=== PATIENT | male | born 1960 | race African-American/Black ===

== ENCOUNTER 2018-10-04 10:58 | Inpatient (IN) | payer MEDICAID, OTHER ==
[~2018-10-04] VITALS: Ht 182.9 cm; Wt 199.1 kg
[~2018-10-04 10:58] MED LIST: ASPI-1159 PO; ATOR20TA65 PO; FURO-151 PO; Lisinopril PO; SEROQUEL
[2018-10-04] MEDS ORDERED: NITROGLYCERIN OINT 1GM/INCH UDPKT TD ONE (11:15)
[2018-10-04] MEDS ORDERED: FUROSEMIDE 40MG/4ML VIAL IV ONE (11:15)
[2018-10-04] MEDS ORDERED: ASPIRIN 81MG TABLET PO ONE (11:15)
[2018-10-04 12:10] LABS: INR 1.1; PARTIAL THROMBOPLASTIN TIME 24.7 sec (23.4-31.0); PROTHROMBIN TIME 10.9 sec (9.1-11.1)
[2018-10-04 12:16] LABS: BG BASE EXCESS 6.8 mmol/L (-2.0-2.0); BG BILEVEL POS AIRWAY PRESSURE ST=15/5; BG CARBOXYHEMOGLOBIN 2.8 % (0.5-1.5); BG DEOXYHEMOGLOBIN 1.3 % (0.0-5.0); BG FRACTION INSPIRED OXYGEN 50; BG HCO3 ACT 34.1 mmol/L (22.0-26.0); BG METHEMOGLOBIN 0.1 % (0.0-1.5); BG OXYGEN SATURATION 98.7 % (92.0-98.5); BG OXYHEMOGLOBIN 95.8 % (94.0-97.0); BG PCO2 62.1 mmHg (35.0-45.0); BG PH 7.358 (7.350-7.450); BG PO2 140.7 mmHg (75.0-100.0); BG PRESSURE SUPPORT 10; BG SAMPLE SITE LEFT RADIAL; BG TOTAL HEMOGLOBIN 12.8 g/dL (12.0-18.0); BG VENT MODE MASK - BIPAP; BG VENT RATE 22 set
[2018-10-04 12:33] LABS: CHLORIDE 100 mEq/L (98-107)
[2018-10-04 12:50] LABS: HEMATOCRIT. 38.2 % (42.0-52.0); HEMOGLOBIN. 12.3 g/dL (14.0-18.0); MEAN CORPUSCULAR HEMOGLOBIN 28.8 pg (28.0-32.0); MEAN CORPUSCULAR VOLUME 89.5 fL (80.0-94.0); MEAN PLATELET VOLUME 8.7 fl (7.4-10.4); PLATELET 165 x1000/uL (130-400); RED BLOOD CELL COUNT 4.27 mill/uL (4.7-6.1); RED CELL DISTRIBUTION WIDTH 14.4 % (11.6-14.6)
[2018-10-04 13:09] LABS: PLATELET ESTIMATE NORMAL
[2018-10-04] MEDS ORDERED: ACETAMINOPHEN 325MG TABLET PO PRN (14:30)
[2018-10-04] MEDS ORDERED: ONDANSETRON HCL 4MG/2ML INJ IV PRN (14:30)
[2018-10-04] MEDS ORDERED: CLONIDINE 0.1MG TABLET PO PRN (14:30)
[2018-10-04 15:15] LABS: CLARITY URINE CLEAR (CLEAR); COLOR URINE YELLOW (YELLOW); KETONES URINE NEGATIVE (NEGATIVE); LEUKOCYTE ESTERASE URINE NEGATIVE (NEGATIVE); NITRITE URINE NEGATIVE (NEGATIVE); OCCULT BLOOD URINE NEGATIVE (NEGATIVE); PROTEIN URINE NEGATIVE (NEGATIVE); SPECIFIC GRAVITY URINE 1.003 (1.005-1.030); UROBILINOGEN URINE 0.2 E.U./dL (0.2-1.0)
[2018-10-04 15:31] LABS: *AMPHETAMINES SCREEN URINE NEGATIVE (NEGATIVE); *BARBITURATES SCREEN URINE NEGATIVE (NEGATIVE); *BENZODIAZEPINES SCREEN URINE NEGATIVE (NEGATIVE); *COCAINE SCREEN URINE PRESUMTIVE POSITIVE (NEGATIVE); METHADONE URINE SCREEN NEGATIVE (NEGATIVE); OPIATES URINE SCREEN NEGATIVE (NEGATIVE)
[2018-10-04 15:32] LABS: CANNABINOID URINE SCREEN NEGATIVE (NEGATIVE); PHENCYCLIDINE URINE SCREEN NEGATIVE (NEGATIVE)
[2018-10-04 16:20] VITALS: BP 125/89
[2018-10-04 16:30] VITALS: BP 128/72
[2018-10-04] MEDS ORDERED: NIFEDIPINE XL 60MG TAB PO SCH (17:00)
[2018-10-04 18:00] VITALS: BP 118/96
[2018-10-04 20:00] VITALS: BP 144/48
[2018-10-04] MEDS: METOPROLOL TARTRATE 50MG TABLET PO SCH (21:38)
[2018-10-04] MEDS: NIFEDIPINE XL 60MG TAB PO SCH (21:39)
[2018-10-04] MEDS: ATORVASTATIN CALCIUM 20MG TABLET PO SCH (21:39)
[2018-10-04 22:00] VITALS: BP 128/51
[2018-10-04] MEDS ORDERED: ZOLPIDEM TARTRATE 5MG TABLET PO PRN ×2 (23:00)
[2018-10-05] VITALS (12 sets, daily range): BP systolic 101–159; BP diastolic 59–102
[2018-10-05] MEDS: BUDESONIDE 0.5MG/2ML NEB HHN SCH ×3 (01:08→20:01)
[2018-10-05] MEDS: IPRATROPIUM/ALBUTEROL 0.5-3(2.5)MG/3ML NEB HHN PRN ×2 (01:08→13:11)
[2018-10-05 06:39] LABS: BASOPHILS % 0.3 % (0.0-2.0); EOSINOPHILS % 2.2 % (0.0-5.0); HEMATOCRIT. 34.6 % (42.0-52.0); HEMOGLOBIN. 11.5 g/dL (14.0-18.0); LYMPHOCYTES % 10.4 % (20.0-50.0); MEAN CORPUSCULAR HEMOGLOBIN 29.3 pg (28.0-32.0); MEAN CORPUSCULAR VOLUME 87.7 fL (80.0-94.0); MEAN PLATELET VOLUME 9.1 fl (7.4-10.4); MONOCYTES % 7.5 % (2.0-8.0); NEUTROPHILS % 79.6 % (40.0-76.0); PLATELET 161 x1000/uL (130-400); RED BLOOD CELL COUNT 3.94 mill/uL (4.7-6.1)
[2018-10-05] MEDS ORDERED: FUROSEMIDE 40MG/4ML VIAL IVP SCH (09:00)
[2018-10-05] MEDS: ASPIRIN 81MG TABLET PO SCH (09:12)
[2018-10-05] MEDS: METOPROLOL TARTRATE 50MG TABLET PO SCH ×2 (09:12→21:06)
[2018-10-05] MEDS: NIFEDIPINE XL 60MG TAB PO SCH ×2 (09:12→21:06)
[2018-10-05] MEDS: IPRATROPIUM/ALBUTEROL 0.5-3(2.5)MG/3ML NEB HHN SCH (20:01)
[2018-10-05] MEDS: FUROSEMIDE 40MG/4ML VIAL IVP SCH (21:06)
[2018-10-05] MEDS: ATORVASTATIN CALCIUM 20MG TABLET PO SCH (21:06)
[2018-10-06] VITALS (12 sets, daily range): BP systolic 105–162; BP diastolic 27–99
[2018-10-06] MEDS: IPRATROPIUM/ALBUTEROL 0.5-3(2.5)MG/3ML NEB HHN SCH ×4 (02:00→19:59)
[2018-10-06 07:00] LABS: BASOPHILS % 0.5 % (0.0-2.0); EOSINOPHILS % 2.4 % (0.0-5.0); HEMATOCRIT. 35.7 % (42.0-52.0); HEMOGLOBIN. 11.7 g/dL (14.0-18.0); LYMPHOCYTES % 9.7 % (20.0-50.0); MEAN CORPUSCULAR HEMOGLOBIN 29.1 pg (28.0-32.0); MEAN CORPUSCULAR VOLUME 88.5 fL (80.0-94.0); MEAN PLATELET VOLUME 9.1 fl (7.4-10.4); NEUTROPHILS % 80.4 % (40.0-76.0); PLATELET 178 x1000/uL (130-400); RED BLOOD CELL COUNT 4.03 mill/uL (4.7-6.1); RED CELL DISTRIBUTION WIDTH 14.7 % (11.6-14.6)
[2018-10-06] MEDS: BUDESONIDE 0.5MG/2ML NEB HHN SCH ×2 (08:47→19:59)
[2018-10-06] MEDS: NIFEDIPINE XL 60MG TAB PO SCH ×2 (09:35→21:37)
[2018-10-06] MEDS: FUROSEMIDE 40MG/4ML VIAL IVP SCH ×2 (09:36→21:37)
[2018-10-06] MEDS: METOPROLOL TARTRATE 50MG TABLET PO SCH ×2 (09:36→21:38)
[2018-10-06] MEDS: ASPIRIN 81MG TABLET PO SCH (09:36)
[2018-10-06] MEDS: ATORVASTATIN CALCIUM 20MG TABLET PO SCH (21:37)
[2018-10-07] VITALS (12 sets, daily range): BP systolic 100–154; BP diastolic 53–103
[2018-10-07] MEDS: IPRATROPIUM/ALBUTEROL 0.5-3(2.5)MG/3ML NEB HHN SCH ×3 (02:40→13:16)
[2018-10-07 06:35] LABS: BASOPHILS % 0.3 % (0.0-2.0); EOSINOPHILS % 2.7 % (0.0-5.0); HEMATOCRIT. 37.8 % (42.0-52.0); HEMOGLOBIN. 12.3 g/dL (14.0-18.0); LYMPHOCYTES % 12.5 % (20.0-50.0); MEAN CORPUSCULAR HEMOGLOBIN 28.9 pg (28.0-32.0); MEAN CORPUSCULAR VOLUME 88.8 fL (80.0-94.0); MEAN PLATELET VOLUME 8.7 fl (7.4-10.4); MONOCYTES % 8.4 % (2.0-8.0); NEUTROPHILS % 76.1 % (40.0-76.0); PLATELET 184 x1000/uL (130-400); RED BLOOD CELL COUNT 4.25 mill/uL (4.7-6.1); RED CELL DISTRIBUTION WIDTH 14.4 % (11.6-14.6)
[2018-10-07] MEDS: BUDESONIDE 0.5MG/2ML NEB HHN SCH (07:38)
[2018-10-07] MEDS: FUROSEMIDE 40MG/4ML VIAL IVP SCH (08:38)
[2018-10-07] MEDS: METOPROLOL TARTRATE 50MG TABLET PO SCH (08:43)
[2018-10-07] MEDS: ASPIRIN 81MG TABLET PO SCH (08:44)
[2018-10-07] MEDS: NIFEDIPINE XL 60MG TAB PO SCH (08:44)
== END 2018-10-07 19:55 | disposition home or self-care (01) | DRG 133 ==
LOC: ER 10:58 → 5EST 13:15 → EDBEDREQ 13:17 → ENRESERV 13:37
PROVIDERS: ADMIT Internal Medicine; ATTEND Internal Medicine
PROC: 5A09457 Assistance with Respiratory Ventilation, 24-96 Consecutive Hours, Continuous Positive Airway Pressure (ICD-10-PCS; principal; 2018-10-04)
DX: J96.02 Acute respiratory failure with hypercapnia (principal); I50.33 Acute on chronic diastolic (congestive) heart failure; N17.9 Acute kidney failure, unspecified; E87.2 Acidosis; I13.0 Hypertensive heart and chronic kidney disease with heart failure and stage 1 through stage 4 chronic kidney disease, or unspecified chronic kidney disease; B19.20 Unspecified viral hepatitis C without hepatic coma; E66.01 Morbid (severe) obesity due to excess calories; F32.9 Major depressive disorder, single episode, unspecified; F43.10 Post-traumatic stress disorder, unspecified; M19.90 Unspecified osteoarthritis, unspecified site; G47.33 Obstructive sleep apnea (adult) (pediatric); N18.9 Chronic kidney disease, unspecified; F14.90 Cocaine use, unspecified, uncomplicated; D64.9 Anemia, unspecified; Z79.82 Long term (current) use of aspirin; Z79.899 Other long term (current) drug therapy; Z79.1 Long term (current) use of non-steroidal anti-inflammatories (NSAID); Z79.2 Long term (current) use of antibiotics; Z71.6 Tobacco abuse counseling; Z68.43 Body mass index [BMI] 50.0-59.9, adult
CPT/HCPCS: 36415; 36600; 71045; 80048; 80305; 82375; 82805; 83735; 83880; 84484; 93005; 93306; 93970; 94640; 94660; 97162; 99291; J1940; J7620; J7626

== ENCOUNTER 2020-12-17 11:45 | Inpatient (IN) | payer OTHER, MEDICAID ==
[~2020-12-17] VITALS: Ht 182.9 cm; Wt 212.5 kg
[~2020-12-17 11:45] MED LIST changes: -ASPI-1159 PO; +ASPI-1497 PO; +LIDOCAINE HCL/PF 1% 2ML VIAL ONE; -Lisinopril PO
[2020-12-17] MEDS ORDERED: lisinopril (11:49)
[2020-12-17] MEDS ORDERED: ONDANSETRON HCL 4MG/2ML INJ IV STA (12:26)
[2020-12-17] MEDS ORDERED: MORPHINE SULFATE 4 MG/ML CPJ (NOT FOR IM USE) IV STA (12:26)
[2020-12-17] MEDS ORDERED: FUROSEMIDE 40MG/4ML VIAL IV ONE (12:30)
[2020-12-17] MEDS ORDERED: NITROGLYCERIN OINT 1GM/INCH UDPKT TD ONE (12:30)
[2020-12-17 13:44] LABS: BASOPHILS % 0.4 % (0.0-2.0); EOSINOPHILS % 1.3 % (0.0-5.0); HEMATOCRIT. 37.9 % (42.0-52.0); HEMOGLOBIN. 11.8 g/dL (14.0-18.0); LYMPHOCYTES % 9.9 % (20.0-50.0); MEAN CORPUSCULAR HEMOGLOBIN 26.7 pg (28.0-32.0); MEAN PLATELET VOLUME 9.1 fl (7.4-10.4); MONOCYTES % 11.5 % (2.0-8.0); NEUTROPHILS % 76.9 % (40.0-76.0); PLATELET 161 x1000/uL (130-400); RED BLOOD CELL COUNT 4.41 mill/uL (4.7-6.1); RED CELL DISTRIBUTION WIDTH 16.8 % (11.6-14.6)
[2020-12-17 13:51] LABS: CHLORIDE 107 mEq/L (98-107)
[2020-12-17 13:54] LABS: INR 1.1; PARTIAL THROMBOPLASTIN TIME 26.2 sec (23.4-31.0); PROTHROMBIN TIME 11.9 sec (9.6-11.0)
[2020-12-17 13:55] LABS: ETHANOL BLOOD < 10 mg/dL
[2020-12-17 14:09] LABS: BG BASE EXCESS 3.9 mmol/L (-2.0-2.0); BG CARBOXYHEMOGLOBIN 2.3 % (0.5-1.5); BG DEOXYHEMOGLOBIN 0.4 % (0.0-5.0); BG FRACTION INSPIRED OXYGEN 60; BG HCO3 ACT 33.4 mmol/L (22.0-26.0); BG METHEMOGLOBIN 0.3 % (0.0-1.5); BG OXYGEN SATURATION 99.6 % (92.0-98.5); BG PCO2 76.3 mmHg (35.0-45.0); BG PH 7.259 (7.350-7.450); BG PO2 275.8 mmHg (75.0-100.0); BG SAMPLE SITE LEFT RADIAL; BG TOTAL HEMOGLOBIN 13.3 g/dL (12.0-18.0); BG VENT MODE MASK - BIPAP
[2020-12-17] MEDS ORDERED: ASPIRIN 325MG EC TABLET PO ONE (15:15)
[2020-12-17] MEDS ORDERED: HYDRALAZINE 20MG/ML VIAL IV PRN (15:30)
[2020-12-17] MEDS ORDERED: CLONIDINE 0.1MG TABLET PO PRN (15:30)
[2020-12-17] MEDS ORDERED: GUAIFENESIN 200MG/10ML SUGAR FREE UDC PO PRN (15:30)
[2020-12-17] MEDS ORDERED: MAGNESIUM/ALUMINUM HYDROXIDE/SIMETHICONE 30ML UDC PO PRN (15:30)
[2020-12-17] MEDS ORDERED: ONDANSETRON HCL 4MG/2ML INJ IV PRN (15:30)
[2020-12-17] MEDS ORDERED: DOCUSATE SODIUM 100MG CAPSULE PO PRN (15:30)
[2020-12-17] MEDS ORDERED: LORAZEPAM 2MG/ML CPJ IV PRN (15:30)
[2020-12-17] MEDS ORDERED: DIPHENHYDRAMINE 50MG/ML VIAL IV PRN (15:30)
[2020-12-17] MEDS ORDERED: ACETAMINOPHEN 325MG TABLET PO PRN (15:30)
[2020-12-17] MEDS ORDERED: IPRATROPIUM/ALBUTEROL 0.5-3(2.5)MG/3ML NEB HHN PRN (15:30)
[2020-12-17] MEDS ORDERED: ENOXAPARIN 40MG/0.4ML SYR SUBCUT SCH (16:30)
[2020-12-17] MEDS ORDERED: SACUBITRIL/VALSARTAN 24/26 TAB PO SCH (17:00)
[2020-12-17] MEDS: MORPHINE SULFATE 2 MG/ML CPJ (NOT FOR IM USE) IV PRN (21:45)
[2020-12-17] MEDS: SODIUM CHLORIDE 0.9% INJ 3ML FLUSH IVF SCH (22:00)
[2020-12-18] VITALS (7 sets, daily range): BP systolic 119–160; BP diastolic 53–123
[2020-12-18] MEDS: SODIUM CHLORIDE 0.9% INJ 3ML FLUSH IVF SCH ×3 (06:10→20:58)
[2020-12-18 06:51] LABS: BASOPHILS % 0.8 % (0.0-2.0); EOSINOPHILS % 0.9 % (0.0-5.0); HEMATOCRIT. 37.6 % (42.0-52.0); HEMOGLOBIN. 11.6 g/dL (14.0-18.0); LYMPHOCYTES % 8.9 % (20.0-50.0); MEAN CORPUSCULAR HEMOGLOBIN 26.7 pg (28.0-32.0); MEAN CORPUSCULAR VOLUME 86.4 fL (80.0-94.0); MEAN PLATELET VOLUME 9.1 fl (7.4-10.4); MONOCYTES % 11.7 % (2.0-8.0); NEUTROPHILS % 77.7 % (40.0-76.0); PLATELET 179 x1000/uL (130-400); RED BLOOD CELL COUNT 4.35 mill/uL (4.7-6.1); RED CELL DISTRIBUTION WIDTH 17.3 % (11.6-14.6)
[2020-12-18 06:55] LABS: CHLORIDE 107 mEq/L (98-107)
[2020-12-18 07:00] LABS: LDL CHOLESTEROL 39 mg/dL (5-100)
[2020-12-18 07:02] LABS: CREATINE KINASE 223 IU/L (39-308); HDL CHOLESTEROL 45 mg/dL (40-59)
[2020-12-18 07:05] LABS: CREATINE KINASE MB FRACTION 1.7 ng/mL (0.5-3.6)
[2020-12-18 07:07] LABS: T4 FREE 1.05 ng/dL (0.76-1.46); TOTAL IRON BINDING CAPACITY 349 ug/dL (250-450)
[2020-12-18] MEDS: ASPIRIN 81MG TABLET PO SCH (08:38)
[2020-12-18] MEDS: FUROSEMIDE 40MG/4ML VIAL IVP SCH ×2 (08:38→17:21)
[2020-12-18] MEDS: SACUBITRIL/VALSARTAN 24/26 TAB PO SCH ×2 (09:00→17:00)
[2020-12-18] MEDS: AMLODIPINE 10MG TABLET PO SCH (17:22)
[2020-12-18] MEDS: ENOXAPARIN 40MG/0.4ML SYR SUBCUT SCH (20:58)
[2020-12-19] VITALS: BP 134/70
[2020-12-19 03:15] VITALS: BP 110/61
[2020-12-19] MEDS: SODIUM CHLORIDE 0.9% INJ 3ML FLUSH IVF SCH ×3 (06:09→20:51)
[2020-12-19 08:00] VITALS: BP 158/60
[2020-12-19] MEDS: SACUBITRIL/VALSARTAN 24/26 TAB PO SCH ×2 (09:00→17:00)
[2020-12-19] MEDS: AMLODIPINE 10MG TABLET PO SCH (10:13)
[2020-12-19] MEDS: ASPIRIN 81MG TABLET PO SCH (10:13)
[2020-12-19] MEDS: ENOXAPARIN 40MG/0.4ML SYR SUBCUT SCH ×2 (10:14→20:51)
[2020-12-19] MEDS: FUROSEMIDE 40MG/4ML VIAL IVP SCH ×2 (11:02→18:21)
[2020-12-19] MEDS: MORPHINE SULFATE 2 MG/ML CPJ (NOT FOR IM USE) IV PRN (11:03)
[2020-12-19 12:00] VITALS: BP 120/45
[2020-12-19 14:24] LABS: OPIATES URINE SCREEN NEGATIVE (NEGATIVE); PHENCYCLIDINE URINE SCREEN NEGATIVE (NEGATIVE)
[2020-12-19 14:25] LABS: CANNABINOID URINE SCREEN NEGATIVE (NEGATIVE)
[2020-12-19 14:26] LABS: *AMPHETAMINES SCREEN URINE NEGATIVE (NEGATIVE)
[2020-12-19 14:28] LABS: *BARBITURATES SCREEN URINE NEGATIVE (NEGATIVE)
[2020-12-19 14:32] LABS: *COCAINE SCREEN URINE PRESUMTIVE POSITIVE (NEGATIVE)
[2020-12-19 14:33] LABS: *BENZODIAZEPINES SCREEN URINE NEGATIVE (NEGATIVE)
[2020-12-19 14:34] LABS: METHADONE URINE SCREEN NEGATIVE (NEGATIVE)
[2020-12-19 16:00] VITALS: BP 159/89
[2020-12-19 20:00] VITALS: BP 143/68
[2020-12-20] VITALS: BP 151/95
[2020-12-20] MEDS: SODIUM CHLORIDE 0.9% INJ 3ML FLUSH IVF SCH ×3 (05:07→20:56)
[2020-12-20 05:56] LABS: CHLORIDE 102 mEq/L (98-107)
[2020-12-20 06:14] LABS: EOSINOPHILS % 2.2 % (0.0-5.0); HEMATOCRIT. 37.3 % (42.0-52.0); HEMOGLOBIN. 11.9 g/dL (14.0-18.0); MEAN CORPUSCULAR HEMOGLOBIN 27.2 pg (28.0-32.0); MEAN CORPUSCULAR VOLUME 85.5 fL (80.0-94.0); MEAN PLATELET VOLUME 8.8 fl (7.4-10.4); MONOCYTES % 9.4 % (2.0-8.0); NEUTROPHILS % 77.4 % (40.0-76.0); PLATELET 166 x1000/uL (130-400); RED BLOOD CELL COUNT 4.36 mill/uL (4.7-6.1); RED CELL DISTRIBUTION WIDTH 16.4 % (11.6-14.6)
[2020-12-20 08:00] VITALS: BP 106/74
[2020-12-20] MEDS: FUROSEMIDE 40MG/4ML VIAL IVP SCH ×2 (08:38→17:55)
[2020-12-20] MEDS: SACUBITRIL/VALSARTAN 24/26 TAB PO SCH ×2 (08:38→17:55)
[2020-12-20] MEDS: ASPIRIN 81MG TABLET PO SCH (08:38)
[2020-12-20] MEDS: ENOXAPARIN 40MG/0.4ML SYR SUBCUT SCH ×2 (08:39→20:54)
[2020-12-20] MEDS: AMLODIPINE 10MG TABLET PO SCH (08:40)
[2020-12-20 12:00] VITALS: BP 137/78
[2020-12-20 15:59] VITALS: BP 147/77
[2020-12-20 20:00] VITALS: BP 130/96
[2020-12-20] MEDS: HYDROCODONE/ACETAMINOPHEN 5/325MG TABLET PO PRN (20:55)
[2020-12-21] VITALS (7 sets, daily range): BP systolic 113–146; BP diastolic 67–95
[2020-12-21] MEDS: SODIUM CHLORIDE 0.9% INJ 3ML FLUSH IVF SCH ×3 (05:59→21:16)
[2020-12-21 06:38] LABS: BASOPHILS % 0.9 % (0.0-2.0); EOSINOPHILS % 3.4 % (0.0-5.0); HEMATOCRIT. 37.7 % (42.0-52.0); MEAN PLATELET VOLUME 8.5 fl (7.4-10.4); MONOCYTES % 9.7 % (2.0-8.0); PLATELET 140 x1000/uL (130-400); RED BLOOD CELL COUNT 4.44 mill/uL (4.7-6.1); RED CELL DISTRIBUTION WIDTH 16.5 % (11.6-14.6)
[2020-12-21] MEDS: ENOXAPARIN 40MG/0.4ML SYR SUBCUT SCH ×2 (09:19→20:30)
[2020-12-21] MEDS: ASPIRIN 81MG TABLET PO SCH (09:19)
[2020-12-21] MEDS: AMLODIPINE 10MG TABLET PO SCH (09:19)
[2020-12-21] MEDS: FUROSEMIDE 40MG/4ML VIAL IVP SCH ×2 (09:19→17:44)
[2020-12-21] MEDS: SACUBITRIL/VALSARTAN 24/26 TAB PO SCH ×2 (09:33→17:44)
[2020-12-21] MEDS: MORPHINE SULFATE 2 MG/ML CPJ (NOT FOR IM USE) IV PRN (20:20)
[2020-12-22] VITALS: BP 145/95
[2020-12-22] MEDS: HYDROCODONE/ACETAMINOPHEN 5/325MG TABLET PO PRN (01:18)
[2020-12-22] MEDS: MORPHINE SULFATE 2 MG/ML CPJ (NOT FOR IM USE) IV PRN ×4 (03:55→21:59)
[2020-12-22 04:00] VITALS: BP 126/43
[2020-12-22] MEDS: SODIUM CHLORIDE 0.9% INJ 3ML FLUSH IVF SCH ×3 (05:17→21:52)
[2020-12-22 08:00] VITALS: BP 149/97
[2020-12-22] MEDS: ENOXAPARIN 40MG/0.4ML SYR SUBCUT SCH ×2 (09:22→21:53)
[2020-12-22] MEDS: SACUBITRIL/VALSARTAN 24/26 TAB PO SCH ×2 (09:29→17:32)
[2020-12-22] MEDS: ASPIRIN 81MG TABLET PO SCH (09:29)
[2020-12-22] MEDS: FUROSEMIDE 40MG/4ML VIAL IVP SCH ×2 (09:29→17:32)
[2020-12-22] MEDS: AMLODIPINE 10MG TABLET PO SCH (09:30)
[2020-12-22 12:00] VITALS: BP 121/55
[2020-12-22 16:00] VITALS: BP 116/59
[2020-12-22 20:00] VITALS: BP 133/72
[2020-12-23] MEDS: SODIUM CHLORIDE 0.9% INJ 3ML FLUSH IVF SCH ×2 (06:15→14:00)
[2020-12-23 08:00] VITALS: BP 127/73
[2020-12-23] MEDS: FUROSEMIDE 40MG/4ML VIAL IVP SCH (09:07)
[2020-12-23] MEDS: ASPIRIN 81MG TABLET PO SCH (09:07)
[2020-12-23] MEDS: AMLODIPINE 10MG TABLET PO SCH (09:08)
[2020-12-23] MEDS: ENOXAPARIN 40MG/0.4ML SYR SUBCUT SCH (09:08)
[2020-12-23] MEDS: SACUBITRIL/VALSARTAN 24/26 TAB PO SCH (09:11)
[2020-12-23 12:00] VITALS: BP 124/80
[2020-12-23 12:13] VITALS: BP 104/41
[2020-12-23 14:00] VITALS: BP 124/80
== END 2020-12-23 18:30 | disposition home or self-care (01) | DRG 291 ==
LOC: ER 11:45 → MICUSO 14:51 → EDBEDREQSVC 15:00 → EDBEDREQ 15:00 → 5EST 22:52
PROVIDERS: ADMIT Internal Medicine; ATTEND Internal Medicine
PROC: 5A09557 Assistance with Respiratory Ventilation, Greater than 96 Consecutive Hours, Continuous Positive Airway Pressure (ICD-10-PCS; principal; 2020-12-17)
DX: I13.0 Hypertensive heart and chronic kidney disease with heart failure and stage 1 through stage 4 chronic kidney disease, or unspecified chronic kidney disease (principal); J96.01 Acute respiratory failure with hypoxia; I50.33 Acute on chronic diastolic (congestive) heart failure; J96.02 Acute respiratory failure with hypercapnia; E66.2 Morbid (severe) obesity with alveolar hypoventilation; E87.2 Acidosis; I31.3 Pericardial effusion (noninflammatory); Z68.44 Body mass index [BMI] 60.0-69.9, adult; I27.20 Pulmonary hypertension, unspecified; N18.9 Chronic kidney disease, unspecified; E78.5 Hyperlipidemia, unspecified; D64.9 Anemia, unspecified; E78.00 Pure hypercholesterolemia, unspecified; F17.200 Nicotine dependence, unspecified, uncomplicated; M47.9 Spondylosis, unspecified; F14.11 Cocaine abuse, in remission; Z20.822 Contact with and (suspected) exposure to COVID-19; M48.061 Spinal stenosis, lumbar region without neurogenic claudication; Z79.82 Long term (current) use of aspirin; Z79.899 Other long term (current) drug therapy
CPT/HCPCS: 36415; 36600; 71045; 72131; 80048; 80053; 80061; 80305; 80320; 82375; 82550; 82553; 82805; 83540; 83550; 83880; 84439; 84443; 84481; 84484; 85025; 85044; 87426; 93005; 93306; 93970; 94660; 96374; 97162; 97530; 99291; A6261; C1893; J1200; J1650; J1940; J2060; J2270; J2405; J3490; G0480

== ENCOUNTER 2021-01-29 11:45 | Inpatient (IN) | payer MEDICAID, OTHER ==
[~2021-01-29] VITALS: Ht 180.3 cm; Wt 215.0 kg
[~2021-01-29 11:45] MED LIST changes: -LIDOCAINE HCL/PF 1% 2ML VIAL ONE; +lisinopril
[2021-01-29 12:28] LABS: HEMATOCRIT. 37.7 % (42.0-52.0); HEMOGLOBIN. 11.8 g/dL (14.0-18.0); MEAN CORPUSCULAR HEMOGLOBIN 26.2 pg (28.0-32.0); MEAN CORPUSCULAR VOLUME 83.4 fL (80.0-94.0); MEAN PLATELET VOLUME 8.4 fl (7.4-10.4); PLATELET 227 x1000/uL (130-400); RED BLOOD CELL COUNT 4.52 mill/uL (4.7-6.1); RED CELL DISTRIBUTION WIDTH 19.9 % (11.6-14.6)
[2021-01-29] MEDS ORDERED: FUROSEMIDE 40MG/4ML VIAL IVP ONE (12:30)
[2021-01-29 12:36] LABS: CHLORIDE 104 mEq/L (98-107)
[2021-01-29 12:37] LABS: CLARITY URINE CLEAR (CLEAR); COLOR URINE YELLOW (YELLOW); KETONES URINE NEGATIVE (NEGATIVE); LEUKOCYTE ESTERASE URINE NEGATIVE (NEGATIVE); NITRITE URINE NEGATIVE (NEGATIVE); OCCULT BLOOD URINE NEGATIVE (NEGATIVE); PROTEIN URINE TRACE (NEGATIVE); SPECIFIC GRAVITY URINE 1.012 (1.005-1.030)
[2021-01-29 12:55] LABS: PLATELET ESTIMATE NORMAL
[2021-01-30] VITALS (7 sets, daily range): BP systolic 110–138; BP diastolic 66–84
[2021-01-30] MEDS ORDERED: IPRATROPIUM/ALBUTEROL 0.5-3(2.5)MG/3ML NEB HHN PRN (01:30)
[2021-01-30 07:06] LABS: BASOPHILS % 0.7 % (0.0-2.0); EOSINOPHILS % 1.9 % (0.0-5.0); HEMATOCRIT. 38.7 % (42.0-52.0); HEMOGLOBIN. 12.1 g/dL (14.0-18.0); LYMPHOCYTES % 7.1 % (20.0-50.0); MEAN CORPUSCULAR HEMOGLOBIN 26.3 pg (28.0-32.0); MEAN CORPUSCULAR VOLUME 84.3 fL (80.0-94.0); MONOCYTES % 11.5 % (2.0-8.0); NEUTROPHILS % 78.8 % (40.0-76.0); PLATELET 279 x1000/uL (130-400); RED BLOOD CELL COUNT 4.59 mill/uL (4.7-6.1); RED CELL DISTRIBUTION WIDTH 20.3 % (11.6-14.6)
[2021-01-30] MEDS ORDERED: LISINOPRIL 20MG TABLET PO SCH (09:00)
[2021-01-30] MEDS: ASPIRIN 81MG TABLET PO SCH (09:40)
[2021-01-30] MEDS: FUROSEMIDE 40MG/4ML VIAL IVP SCH ×2 (09:41→16:17)
[2021-01-30 12:06] LABS: *BARBITURATES SCREEN URINE NEGATIVE (NEGATIVE)
[2021-01-30 12:07] LABS: *BENZODIAZEPINES SCREEN URINE NEGATIVE (NEGATIVE)
[2021-01-30 12:11] LABS: *AMPHETAMINES SCREEN URINE NEGATIVE (NEGATIVE); OPIATES URINE SCREEN NEGATIVE (NEGATIVE)
[2021-01-30 12:14] LABS: *COCAINE SCREEN URINE PRESUMTIVE POSITIVE (NEGATIVE); PHENCYCLIDINE URINE SCREEN NEGATIVE (NEGATIVE)
[2021-01-30 12:16] LABS: METHADONE URINE SCREEN NEGATIVE (NEGATIVE)
[2021-01-30 12:17] LABS: CANNABINOID URINE SCREEN NEGATIVE (NEGATIVE)
[2021-01-30] MEDS: QUETIAPINE FUMARATE 50MG TABLET PO SCH (20:51)
[2021-01-30] MEDS: ATORVASTATIN CALCIUM 20MG TABLET PO SCH (20:51)
[2021-01-30] MEDS: ENOXAPARIN 40MG/0.4ML SYR SUBCUT SCH (20:52)
[2021-01-31] VITALS (7 sets, daily range): BP systolic 110–152; BP diastolic 55–89
[2021-01-31 10:07] LABS: BASOPHILS % 0.8 % (0.0-2.0); EOSINOPHILS % 1.4 % (0.0-5.0); HEMATOCRIT. 37.1 % (42.0-52.0); HEMOGLOBIN. 11.2 g/dL (14.0-18.0); LYMPHOCYTES % 7.8 % (20.0-50.0); MEAN CORPUSCULAR HEMOGLOBIN 26.4 pg (28.0-32.0); MEAN CORPUSCULAR VOLUME 87.7 fL (80.0-94.0); MEAN PLATELET VOLUME 8.5 fl (7.4-10.4); MONOCYTES % 13.4 % (2.0-8.0); NEUTROPHILS % 76.6 % (40.0-76.0); PLATELET 212 x1000/uL (130-400); RED BLOOD CELL COUNT 4.23 mill/uL (4.7-6.1)
[2021-01-31] MEDS: ENOXAPARIN 40MG/0.4ML SYR SUBCUT SCH ×2 (10:19→21:32)
[2021-01-31] MEDS: ASPIRIN 81MG TABLET PO SCH (10:19)
[2021-01-31] MEDS: FUROSEMIDE 40MG/4ML VIAL IVP SCH ×2 (10:19→17:59)
[2021-01-31] MEDS ORDERED: METOLAZONE 2.5MG TABLET PO NR (16:00)
[2021-01-31] MEDS: SACUBITRIL/VALSARTAN 49MG/51MG TABLET PO SCH (21:32)
[2021-01-31] MEDS: ATORVASTATIN CALCIUM 20MG TABLET PO SCH (21:32)
[2021-01-31] MEDS: QUETIAPINE FUMARATE 50MG TABLET PO SCH (21:32)
[2021-02-01] VITALS: BP 100/72
[2021-02-01 04:00] VITALS: BP 137/85
[2021-02-01 08:00] VITALS: BP_SYST 131; BP_SYST 142; BP_DIAS 81; BP_DIAS 84
[2021-02-01] MEDS: ASPIRIN 81MG TABLET PO SCH (10:06)
[2021-02-01] MEDS: FUROSEMIDE 40MG/4ML VIAL IVP SCH ×3 (10:06→18:21)
[2021-02-01] MEDS: SACUBITRIL/VALSARTAN 49MG/51MG TABLET PO SCH ×2 (10:07→20:55)
[2021-02-01] MEDS: ENOXAPARIN 40MG/0.4ML SYR SUBCUT SCH ×2 (10:07→20:56)
[2021-02-01 16:00] VITALS: BP 146/99
[2021-02-01] MEDS: HYDROCODONE/ACETAMINOPHEN 5/325MG TABLET PO PRN (17:09)
[2021-02-01 20:25] VITALS: BP 176/97
[2021-02-01] MEDS: ATORVASTATIN CALCIUM 20MG TABLET PO SCH (20:55)
[2021-02-01] MEDS: QUETIAPINE FUMARATE 50MG TABLET PO SCH (20:55)
[2021-02-01 23:50] VITALS: BP 156/93
[2021-02-02 04:00] VITALS: BP 148/93
[2021-02-02 07:36] LABS: HEMATOCRIT 39.5 % (42.0-52.0); HEMOGLOBIN 12.4 g/dL (14.0-18.0); MEAN CORPUSCULAR HEMOGLOBIN 26.1 pg (28.0-32.0); MEAN CORPUSCULAR VOLUME 83.2 fL (80.0-94.0); PLATELET 194 x1000/uL (130-400); RED BLOOD CELL COUNT 4.74 mill/uL (4.7-6.1); RED CELL DISTRIBUTION WIDTH 20.1 % (11.6-14.6)
[2021-02-02 08:00] VITALS: BP 154/91
[2021-02-02] MEDS: ASPIRIN 81MG TABLET PO SCH (09:16)
[2021-02-02] MEDS: FUROSEMIDE 40MG/4ML VIAL IVP SCH ×2 (09:16→13:00)
[2021-02-02] MEDS: SACUBITRIL/VALSARTAN 49MG/51MG TABLET PO SCH ×2 (09:16→21:14)
[2021-02-02] MEDS: ENOXAPARIN 40MG/0.4ML SYR SUBCUT SCH ×2 (09:16→21:14)
[2021-02-02 12:00] VITALS: BP 148/98
[2021-02-02] MEDS ORDERED: FUROSEMIDE 40MG TABLET PO SCH (14:15)
[2021-02-02] MEDS: HYDROCODONE/ACETAMINOPHEN 5/325MG TABLET PO PRN (14:26)
[2021-02-02 16:00] VITALS: BP 156/83
[2021-02-02 20:38] VITALS: BP 169/101
[2021-02-02] MEDS: QUETIAPINE FUMARATE 50MG TABLET PO SCH (21:14)
[2021-02-02] MEDS: ATORVASTATIN CALCIUM 20MG TABLET PO SCH (21:14)
[2021-02-03] VITALS (7 sets, daily range): BP systolic 130–172; BP diastolic 86–103
[2021-02-03] MEDS: FUROSEMIDE 40MG TABLET PO SCH ×2 (06:16→17:52)
[2021-02-03] MEDS: ASPIRIN 81MG TABLET PO SCH (09:09)
[2021-02-03] MEDS: ENOXAPARIN 40MG/0.4ML SYR SUBCUT SCH ×2 (09:10→21:42)
[2021-02-03] MEDS: SACUBITRIL/VALSARTAN 49MG/51MG TABLET PO SCH ×2 (09:11→21:42)
[2021-02-03] MEDS: HYDROCODONE/ACETAMINOPHEN 5/325MG TABLET PO PRN ×2 (09:28→15:56)
[2021-02-03 11:16] LABS: BASOPHILS % 0.8 % (0.0-2.0); EOSINOPHILS % 1.9 % (0.0-5.0); HEMATOCRIT. 39.9 % (42.0-52.0); HEMOGLOBIN. 12.7 g/dL (14.0-18.0); LYMPHOCYTES % 9.5 % (20.0-50.0); MEAN CORPUSCULAR HEMOGLOBIN 26.1 pg (28.0-32.0); MEAN CORPUSCULAR VOLUME 82.3 fL (80.0-94.0); MEAN PLATELET VOLUME 8.1 fl (7.4-10.4); MONOCYTES % 12.2 % (2.0-8.0); NEUTROPHILS % 75.6 % (40.0-76.0); PLATELET 195 x1000/uL (130-400); RED BLOOD CELL COUNT 4.85 mill/uL (4.7-6.1); RED CELL DISTRIBUTION WIDTH 20.1 % (11.6-14.6)
[2021-02-03 14:09] LABS: CHLORIDE 99 mEq/L (98-107)
[2021-02-03] MEDS: CLONIDINE 0.1MG TABLET PO SCH ×2 (14:09→21:42)
[2021-02-03] MEDS: MULTIVITAMINS,THER W-MINERALS TABLET PO SCH (15:55)
[2021-02-03] MEDS: ATORVASTATIN CALCIUM 20MG TABLET PO SCH (21:42)
[2021-02-03] MEDS: QUETIAPINE FUMARATE 50MG TABLET PO SCH (21:42)
[2021-02-04] VITALS: BP 143/89
[2021-02-04 04:00] VITALS: BP 162/98
[2021-02-04] MEDS: CLONIDINE 0.1MG TABLET PO SCH ×3 (06:18→20:33)
[2021-02-04] MEDS: FUROSEMIDE 40MG TABLET PO SCH ×2 (06:18→17:31)
[2021-02-04 08:00] VITALS: BP 124/69
[2021-02-04 08:29] LABS: BG BASE EXCESS 16.4 mmol/L (-2.0-2.0); BG CARBOXYHEMOGLOBIN 1.6 % (0.5-1.5); BG DEOXYHEMOGLOBIN 7.8 % (0.0-5.0); BG FRACTION INSPIRED OXYGEN 32; BG HCO3 ACT 44.1 mmol/L (22.0-26.0); BG METHEMOGLOBIN 0.1 % (0.0-1.5); BG OXYGEN SATURATION 92.1 % (92.0-98.5); BG OXYHEMOGLOBIN 90.5 % (94.0-97.0); BG PCO2 67.2 mmHg (35.0-45.0); BG PH 7.435 (7.350-7.450); BG PO2 63.2 mmHg (75.0-100.0); BG SAMPLE SITE LEFT RADIAL; BG TOTAL HEMOGLOBIN 13.6 g/dL (12.0-18.0); BG VENT MODE NASAL CANNULA
[2021-02-04] MEDS: ASPIRIN 81MG TABLET PO SCH (08:29)
[2021-02-04] MEDS: ENOXAPARIN 40MG/0.4ML SYR SUBCUT SCH ×2 (08:29→20:34)
[2021-02-04] MEDS: MULTIVITAMINS,THER W-MINERALS TABLET PO SCH (08:29)
[2021-02-04] MEDS: SACUBITRIL/VALSARTAN 49MG/51MG TABLET PO SCH ×2 (08:29→20:33)
[2021-02-04 12:00] VITALS: BP 122/81
[2021-02-04 16:00] VITALS: BP 132/88
[2021-02-04] MEDS ORDERED: FUROSEMIDE 40MG/4ML VIAL IVP NR (19:30)
[2021-02-04 20:11] VITALS: BP 161/107
[2021-02-04] MEDS: QUETIAPINE FUMARATE 50MG TABLET PO SCH (20:33)
[2021-02-04] MEDS: ATORVASTATIN CALCIUM 20MG TABLET PO SCH (20:33)
[2021-02-05] VITALS: BP 129/84
[2021-02-05] MEDS: IPRATROPIUM/ALBUTEROL 0.5-3(2.5)MG/3ML NEB HHN SCH ×4 (01:06→21:20)
[2021-02-05 04:00] VITALS: BP 140/89
[2021-02-05] MEDS: FUROSEMIDE 40MG TABLET PO SCH ×2 (05:36→18:06)
[2021-02-05] MEDS: CLONIDINE 0.1MG TABLET PO SCH ×3 (05:36→20:52)
[2021-02-05 06:09] LABS: BASOPHILS % 1.1 % (0.0-2.0); EOSINOPHILS % 2.2 % (0.0-5.0); HEMATOCRIT. 42.5 % (42.0-52.0); HEMOGLOBIN. 13.3 g/dL (14.0-18.0); LYMPHOCYTES % 13.7 % (20.0-50.0); MEAN CORPUSCULAR HEMOGLOBIN 26.4 pg (28.0-32.0); MEAN CORPUSCULAR VOLUME 84.6 fL (80.0-94.0); MEAN PLATELET VOLUME 8.8 fl (7.4-10.4); PLATELET 149 x1000/uL (130-400); RED BLOOD CELL COUNT 5.02 mill/uL (4.7-6.1); RED CELL DISTRIBUTION WIDTH 20.5 % (11.6-14.6)
[2021-02-05 08:00] VITALS: BP 123/75
[2021-02-05] MEDS: SACUBITRIL/VALSARTAN 49MG/51MG TABLET PO SCH ×2 (08:53→20:52)
[2021-02-05] MEDS: MULTIVITAMINS,THER W-MINERALS TABLET PO SCH (08:53)
[2021-02-05] MEDS: ASPIRIN 81MG TABLET PO SCH (08:53)
[2021-02-05] MEDS: ENOXAPARIN 40MG/0.4ML SYR SUBCUT SCH ×2 (08:54→20:53)
[2021-02-05] MEDS: HYDROCODONE/ACETAMINOPHEN 5/325MG TABLET PO PRN (10:03)
[2021-02-05] MEDS ORDERED: POTASSIUM CHLORIDE 20MEQ TABLET SR PO NR (11:30)
[2021-02-05 11:40] LABS: BG BASE EXCESS 15.1 mmol/L (-2.0-2.0); BG CARBOXYHEMOGLOBIN 1.6 % (0.5-1.5); BG DEOXYHEMOGLOBIN 8.5 % (0.0-5.0); BG FRACTION INSPIRED OXYGEN 32; BG HCO3 ACT 41.7 mmol/L (22.0-26.0); BG METHEMOGLOBIN 0.2 % (0.0-1.5); BG OXYGEN SATURATION 91.3 % (92.0-98.5); BG OXYHEMOGLOBIN 89.7 % (94.0-97.0); BG PCO2 59.1 mmHg (35.0-45.0); BG PH 7.466 (7.350-7.450); BG PO2 57.9 mmHg (75.0-100.0); BG SAMPLE SITE LEFT RADIAL; BG TOTAL HEMOGLOBIN 13.8 g/dL (12.0-18.0); BG VENT MODE NASAL CANNULA
[2021-02-05 12:00] VITALS: BP 134/93
[2021-02-05] MEDS ORDERED: ACETAZOLAMIDE SODIUM 500MG/VIAL IV NR (13:30)
[2021-02-05 16:00] VITALS: BP 155/95
[2021-02-05] MEDS ORDERED: FUROSEMIDE 40MG TABLET PO SCH (17:15)
[2021-02-05] MEDS: POTASSIUM CHLORIDE 20MEQ TABLET SR PO SCH (18:06)
[2021-02-05 20:00] VITALS: BP 149/98
[2021-02-05] MEDS: QUETIAPINE FUMARATE 50MG TABLET PO SCH (20:52)
[2021-02-05] MEDS: ATORVASTATIN CALCIUM 20MG TABLET PO SCH (20:52)
[2021-02-06] VITALS (8 sets, daily range): BP systolic 102–138; BP diastolic 66–95
[2021-02-06] MEDS: IPRATROPIUM/ALBUTEROL 0.5-3(2.5)MG/3ML NEB HHN SCH ×4 (01:06→20:42)
[2021-02-06] MEDS: CLONIDINE 0.1MG TABLET PO SCH ×3 (05:57→21:09)
[2021-02-06 07:00] LABS: HEMOGLOBIN. 12.7 g/dL (14.0-18.0); RED BLOOD CELL COUNT 4.74 mill/uL (4.7-6.1)
[2021-02-06 07:01] LABS: BASOPHILS % 0.5 % (0.0-2.0); EOSINOPHILS % 1.1 % (0.0-5.0); HEMATOCRIT. 39.7 % (42.0-52.0); LYMPHOCYTES % 11.1 % (20.0-50.0); MEAN CORPUSCULAR HEMOGLOBIN 26.8 pg (28.0-32.0); MEAN CORPUSCULAR VOLUME 83.9 fL (80.0-94.0); MEAN PLATELET VOLUME 9.5 fl (7.4-10.4); MONOCYTES % 14.2 % (2.0-8.0); NEUTROPHILS % 73.1 % (40.0-76.0); PLATELET 151 x1000/uL (130-400)
[2021-02-06] MEDS: POTASSIUM CHLORIDE 20MEQ TABLET SR PO SCH ×2 (08:58→17:08)
[2021-02-06] MEDS: ASPIRIN 81MG TABLET PO SCH (08:58)
[2021-02-06] MEDS: MULTIVITAMINS,THER W-MINERALS TABLET PO SCH (08:58)
[2021-02-06] MEDS: FUROSEMIDE 40MG TABLET PO SCH ×2 (08:59→17:08)
[2021-02-06] MEDS: ENOXAPARIN 40MG/0.4ML SYR SUBCUT SCH ×2 (08:59→20:49)
[2021-02-06] MEDS: SACUBITRIL/VALSARTAN 49MG/51MG TABLET PO SCH ×2 (08:59→20:49)
[2021-02-06] MEDS: QUETIAPINE FUMARATE 50MG TABLET PO SCH (20:49)
[2021-02-06] MEDS: ATORVASTATIN CALCIUM 20MG TABLET PO SCH (20:49)
[2021-02-06] MEDS: HYDROCODONE/ACETAMINOPHEN 5/325MG TABLET PO PRN (21:10)
== END 2021-02-06 22:40 | DRG 194 ==
LOC: ER 11:59 → 5WST 18:07 → ENRESERV 21:05 → 5WST 02-01 16:17
PROVIDERS: ADMIT Internal Medicine; ATTEND Internal Medicine
PROC: 5A09457 Assistance with Respiratory Ventilation, 24-96 Consecutive Hours, Continuous Positive Airway Pressure (ICD-10-PCS; principal; 2021-01-30)
PROC: 5A09357 Assistance with Respiratory Ventilation, Less than 24 Consecutive Hours, Continuous Positive Airway Pressure (ICD-10-PCS; 2021-02-02)
PROC: 5A09357 Assistance with Respiratory Ventilation, Less than 24 Consecutive Hours, Continuous Positive Airway Pressure (ICD-10-PCS; 2021-02-03)
PROC: 5A09357 Assistance with Respiratory Ventilation, Less than 24 Consecutive Hours, Continuous Positive Airway Pressure (ICD-10-PCS; 2021-02-04)
PROC: 5A09357 Assistance with Respiratory Ventilation, Less than 24 Consecutive Hours, Continuous Positive Airway Pressure (ICD-10-PCS; 2021-02-05)
PROC: 5A09357 Assistance with Respiratory Ventilation, Less than 24 Consecutive Hours, Continuous Positive Airway Pressure (ICD-10-PCS; 2021-02-06)
DX: I13.2 Hypertensive heart and chronic kidney disease with heart failure and with stage 5 chronic kidney disease, or end stage renal disease (principal); R65.11 Systemic inflammatory response syndrome (SIRS) of non-infectious origin with acute organ dysfunction; N17.9 Acute kidney failure, unspecified; J96.01 Acute respiratory failure with hypoxia; J96.02 Acute respiratory failure with hypercapnia; I31.3 Pericardial effusion (noninflammatory); E66.2 Morbid (severe) obesity with alveolar hypoventilation; N18.5 Chronic kidney disease, stage 5; E87.1 Hypo-osmolality and hyponatremia; I50.33 Acute on chronic diastolic (congestive) heart failure; N50.89 Other specified disorders of the male genital organs; N43.3 Hydrocele, unspecified; D64.9 Anemia, unspecified; E78.00 Pure hypercholesterolemia, unspecified; E78.5 Hyperlipidemia, unspecified; Z60.2 Problems related to living alone; F14.10 Cocaine abuse, uncomplicated; Z20.822 Contact with and (suspected) exposure to COVID-19; Z90.49 Acquired absence of other specified parts of digestive tract; Z79.82 Long term (current) use of aspirin; Z79.899 Other long term (current) drug therapy; Z71.3 Dietary counseling and surveillance; Z71.51 Drug abuse counseling and surveillance of drug abuser; Z68.44 Body mass index [BMI] 60.0-69.9, adult
CPT/HCPCS: 36415; 36600; 71045; 76870; 80048; 80053; 80305; 81003; 82375; 82805; 83880; 84484; 85025; 85027; 87426; 93005; 93976; 94640; 94660; 97161; 99285; A6261; J1120; J1650; J1940

== ENCOUNTER 2021-11-03 10:04 | Emergency (ER) | payer OTHER ==
[~2021-11-03] VITALS: Ht 177.8 cm; Wt 170.0 kg
[2021-11-03 11:06] LABS: BASOPHILS % 0.4 % (0.0-2.0); EOSINOPHILS % 0.9 % (0.0-5.0); HEMATOCRIT. 46.6 % (42.0-52.0); HEMOGLOBIN. 14.6 g/dL (14.0-18.0); LYMPHOCYTES % 10.1 % (20.0-50.0); MEAN CORPUSCULAR VOLUME 89.6 fL (80.0-94.0); MEAN PLATELET VOLUME 8.6 fl (7.4-10.4); MONOCYTES % 14.6 % (2.0-8.0); PLATELET 126 x1000/uL (130-400); RED CELL DISTRIBUTION WIDTH 17.6 % (11.6-14.6)
[2021-11-03 11:11] LABS: CHLORIDE 101 mEq/L (98-107)
[2021-11-03] MEDS ORDERED: ENALAPRIL 2.5MG/2ML VIAL 2ML IV ONE (12:00)
[2021-11-03] MEDS ORDERED: FUROSEMIDE 40MG/4ML VIAL IVP ONE (12:00)
[2021-11-03 15:19] VITALS: BP 118/76
== END 2021-11-03 17:11 | disposition short-term general hospital (02) ==
LOC: ER 10:14
DX: I11.0 Hypertensive heart disease with heart failure (principal); I50.9 Heart failure, unspecified; F14.10 Cocaine abuse, uncomplicated; Z79.82 Long term (current) use of aspirin
CPT/HCPCS: 36415; 71045; 80053; 83880; 84484; 85025; 87426; 93005; 99285; J3490

== ENCOUNTER 2022-01-12 11:35 | Emergency (ER) | payer OTHER ==
[~2022-01-12] VITALS: Ht 182.9 cm; Wt 159.0 kg
[~2022-01-12 11:35] MED LIST changes: -SEROQUEL; -lisinopril
[2022-01-12] MEDS ORDERED: FUROSEMIDE 40MG/4ML VIAL IVP ONE (12:30)
[2022-01-12 12:32] LABS: HEMATOCRIT. 39.2 % (42.0-52.0); HEMOGLOBIN. 12.9 g/dL (14.0-18.0); MEAN CORPUSCULAR HEMOGLOBIN 28.7 pg (28.0-32.0); MEAN CORPUSCULAR VOLUME 87.2 fL (80.0-94.0); MEAN PLATELET VOLUME 9.1 fl (7.4-10.4); PLATELET 231 x1000/uL (130-400); RED BLOOD CELL COUNT 4.49 mill/uL (4.7-6.1); RED CELL DISTRIBUTION WIDTH 19.4 % (11.6-14.6)
[2022-01-12 12:39] LABS: CHLORIDE 97 mEq/L (98-107)
[2022-01-12 12:42] LABS: INR 1.2; PROTHROMBIN TIME 12.4 sec (9.6-11.0)
[2022-01-12 13:10] LABS: NUCLEATED RED BLOOD CELLS 1 /100 WBC
[2022-01-12 13:11] LABS: PLATELET ESTIMATE NORMAL
[2022-01-12 15:05] VITALS: BP 107/73
== END 2022-01-12 17:58 | disposition short-term general hospital (02) ==
LOC: ER 11:35 → CANBEDREQ 16:12 → ER 17:58
DX: I13.0 Hypertensive heart and chronic kidney disease with heart failure and stage 1 through stage 4 chronic kidney disease, or unspecified chronic kidney disease (principal); N18.9 Chronic kidney disease, unspecified; I50.9 Heart failure, unspecified; N17.9 Acute kidney failure, unspecified; N43.3 Hydrocele, unspecified; F17.210 Nicotine dependence, cigarettes, uncomplicated; Z99.81 Dependence on supplemental oxygen; Z79.82 Long term (current) use of aspirin
CPT/HCPCS: 36415; 71045; 76870; 80053; 83880; 84484; 85025; 85610; 93005; 93976; 96374; 99285; J1940

== ENCOUNTER 2022-04-16 16:26 | Inpatient (IN) | payer OTHER ==
[~2022-04-16] VITALS: Ht 172.7 cm; Wt 127.0 kg
[2022-04-16 17:34] LABS: BASOPHILS % 0.4 % (0.0-2.0); EOSINOPHILS % 0.6 % (0.0-5.0); HEMATOCRIT. 32.8 % (42.0-52.0); HEMOGLOBIN. 10.5 g/dL (14.0-18.0); LYMPHOCYTES % 8.5 % (20.0-50.0); MEAN CORPUSCULAR HEMOGLOBIN 28.5 pg (28.0-32.0); MEAN PLATELET VOLUME 7.7 fl (7.4-10.4); MONOCYTES % 8.2 % (2.0-8.0); NEUTROPHILS % 82.3 % (40.0-76.0); PLATELET 298 x1000/uL (130-400); RED BLOOD CELL COUNT 3.68 mill/uL (4.7-6.1); RED CELL DISTRIBUTION WIDTH 22.6 % (11.6-14.6)
[2022-04-16 17:41] LABS: INR 1.1; PROTHROMBIN TIME 11.7 sec (9.6-11.0)
[2022-04-16 17:54] LABS: CHLORIDE 96 mEq/L (98-107)
[2022-04-16 18:00] LABS: PLATELET ESTIMATE NORMAL
[2022-04-16 19:19] LABS: BG BASE EXCESS -0.5 mmol/L (-2.0-2.0); BG CARBOXYHEMOGLOBIN 0.6 % (0.5-1.5); BG DEOXYHEMOGLOBIN 0.5 % (0.0-5.0); BG FRACTION INSPIRED OXYGEN 100; BG HCO3 ACT 23.9 mmol/L (22.0-26.0); BG METHEMOGLOBIN 0.4 % (0.0-1.5); BG OXYGEN SATURATION 99.5 % (92.0-98.5); BG OXYHEMOGLOBIN 98.5 % (94.0-97.0); BG PCO2 38.2 mmHg (35.0-45.0); BG PH 7.414 (7.350-7.450); BG PO2 458.2 mmHg (75.0-100.0); BG SAMPLE SITE RIGHT RADIAL; BG TOTAL HEMOGLOBIN 11.2 g/dL (12.0-18.0); BG VENT MODE MASK - BIPAP
[2022-04-17] VITALS (9 sets, daily range): BP systolic 72–138; BP diastolic 47–109
[2022-04-17] MEDS ORDERED: ONDANSETRON HCL 4MG/2ML INJ IV PRN (05:45)
[2022-04-17] MEDS: AMLODIPINE 10MG TABLET PO SCH (08:51)
[2022-04-17 09:08] LABS: HEMATOCRIT. 32.2 % (42.0-52.0); HEMOGLOBIN. 10.2 g/dL (14.0-18.0); MEAN CORPUSCULAR HEMOGLOBIN 28.4 pg (28.0-32.0); MEAN CORPUSCULAR VOLUME 89.3 fL (80.0-94.0); MEAN PLATELET VOLUME 7.7 fl (7.4-10.4); PLATELET 244 x1000/uL (130-400); RED BLOOD CELL COUNT 3.61 mill/uL (4.7-6.1)
[2022-04-17 09:51] LABS: CHLORIDE 100 mEq/L (98-107)
[2022-04-17 12:23] LABS: HEPATITIS B SURFACE ANTIGEN NEGATIVE
[2022-04-17] MEDS: ENOXAPARIN 40MG/0.4ML SYR SUBCUT SCH (14:01)
[2022-04-17] MEDS ORDERED: IPRATROPIUM/ALBUTEROL 0.5-3(2.5)MG/3ML NEB HHN PRN (15:15)
[2022-04-17] MEDS ORDERED: NALOXONE HCL 0.4MG/ML VIAL IV PRN (15:30)
[2022-04-17] MEDS: LACTULOSE 20G/30ML UDC PO PRN (16:01)
[2022-04-17] MEDS: HYDROCODONE/ACETAMINOPHEN 5/325MG TABLET PO PRN (16:02)
[2022-04-17] MEDS: IPRATROPIUM/ALBUTEROL 0.5-3(2.5)MG/3ML NEB HHN SCH (19:52)
[2022-04-18] VITALS (12 sets, daily range): BP systolic 100–129; BP diastolic 40–82
[2022-04-18] MEDS: IPRATROPIUM/ALBUTEROL 0.5-3(2.5)MG/3ML NEB HHN SCH ×4 (00:52→21:18)
[2022-04-18 07:02] LABS: HEMATOCRIT. 33.3 % (42.0-52.0); HEMOGLOBIN. 10.7 g/dL (14.0-18.0); MEAN CORPUSCULAR VOLUME 90.5 fL (80.0-94.0); MEAN PLATELET VOLUME 7.7 fl (7.4-10.4); PLATELET 223 x1000/uL (130-400); RED BLOOD CELL COUNT 3.68 mill/uL (4.7-6.1); RED CELL DISTRIBUTION WIDTH 23.4 % (11.6-14.6)
[2022-04-18 08:07] LABS: NUCLEATED RED BLOOD CELLS 2 /100 WBC
[2022-04-18 08:08] LABS: PLATELET ESTIMATE NORMAL
[2022-04-18] MEDS: AMLODIPINE 10MG TABLET PO SCH (09:00)
[2022-04-18] MEDS: DOCUSATE SODIUM 100MG CAPSULE PO SCH (09:00)
[2022-04-18] MEDS ORDERED: FUROSEMIDE 40MG/4ML VIAL IVP SCH (09:00)
[2022-04-18] MEDS: FOLIC ACID/VITAMIN B COMP W-C TABLET PO SCH (09:40)
[2022-04-18] MEDS ORDERED: POTASSIUM CHLORIDE 20MEQ TABLET SR PO NR (09:45)
[2022-04-18] MEDS ORDERED: VANCOMYCIN 2,000 MG in DEXT 5% WATER 500 ML IV NR (12:30)
[2022-04-18] MEDS: SEVELAMER CARBONATE 800 MG TABLET PO SCH ×2 (13:12→20:56)
[2022-04-18] MEDS: ENOXAPARIN 40MG/0.4ML SYR SUBCUT SCH (13:12)
[2022-04-18 14:07] LABS: NUCLEATED RED BLOOD CELLS 1 /100 WBC; PLATELET ESTIMATE NORMAL
[2022-04-19] VITALS (11 sets, daily range): BP systolic 104–137; BP diastolic 54–78
[2022-04-19] MEDS: IPRATROPIUM/ALBUTEROL 0.5-3(2.5)MG/3ML NEB HHN SCH ×4 (01:54→20:39)
[2022-04-19 07:02] LABS: HEMATOCRIT. 33.3 % (42.0-52.0); HEMOGLOBIN. 10.5 g/dL (14.0-18.0); MEAN CORPUSCULAR HEMOGLOBIN 28.6 pg (28.0-32.0); MEAN CORPUSCULAR VOLUME 90.4 fL (80.0-94.0); MEAN PLATELET VOLUME 7.8 fl (7.4-10.4); PLATELET 221 x1000/uL (130-400); RED BLOOD CELL COUNT 3.68 mill/uL (4.7-6.1); RED CELL DISTRIBUTION WIDTH 22.9 % (11.6-14.6)
[2022-04-19] MEDS: FOLIC ACID/VITAMIN B COMP W-C TABLET PO SCH (08:59)
[2022-04-19] MEDS: SEVELAMER CARBONATE 800 MG TABLET PO SCH ×3 (08:59→17:57)
[2022-04-19] MEDS: DOCUSATE SODIUM 100MG CAPSULE PO SCH (08:59)
[2022-04-19] MEDS: AMLODIPINE 10MG TABLET PO SCH (09:02)
[2022-04-19] MEDS: ENOXAPARIN 40MG/0.4ML SYR SUBCUT SCH (12:35)
[2022-04-19] MEDS ORDERED: VANCOMYCIN 1G PREMIX 200 ML IV SCH (17:00)
[2022-04-20] VITALS (12 sets, daily range): BP systolic 106–160; BP diastolic 56–87
[2022-04-20] MEDS: HYDROCODONE/ACETAMINOPHEN 5/325MG TABLET PO PRN ×2 (01:27→10:26)
[2022-04-20] MEDS: IPRATROPIUM/ALBUTEROL 0.5-3(2.5)MG/3ML NEB HHN SCH ×5 (01:53→20:38)
[2022-04-20 06:37] LABS: PLATELET ESTIMATE NORMAL
[2022-04-20 07:35] LABS: HEMATOCRIT. 33.9 % (42.0-52.0); HEMOGLOBIN. 10.8 g/dL (14.0-18.0); MEAN CORPUSCULAR HEMOGLOBIN 29.1 pg (28.0-32.0); MEAN CORPUSCULAR VOLUME 91.1 fL (80.0-94.0); MEAN PLATELET VOLUME 7.7 fl (7.4-10.4); PLATELET 219 x1000/uL (130-400); RED BLOOD CELL COUNT 3.72 mill/uL (4.7-6.1); RED CELL DISTRIBUTION WIDTH 23.8 % (11.6-14.6)
[2022-04-20] MEDS ORDERED: LIDOCAINE HCL 1% 10 MG/ML 10ML VIAL ONE (07:46)
[2022-04-20] MEDS: FOLIC ACID/VITAMIN B COMP W-C TABLET PO SCH (08:39)
[2022-04-20] MEDS: DOCUSATE SODIUM 100MG CAPSULE PO SCH (08:39)
[2022-04-20] MEDS: SEVELAMER CARBONATE 800 MG TABLET PO SCH ×3 (08:40→17:47)
[2022-04-20] MEDS: AMLODIPINE 10MG TABLET PO SCH (08:40)
[2022-04-20] MEDS: ENOXAPARIN 40MG/0.4ML SYR SUBCUT SCH (12:39)
[2022-04-20 14:25] LABS: PLATELET ESTIMATE NORMAL
[2022-04-21] VITALS (10 sets, daily range): BP systolic 98–134; BP diastolic 44–80
[2022-04-21] MEDS: IPRATROPIUM/ALBUTEROL 0.5-3(2.5)MG/3ML NEB HHN SCH ×3 (00:57→21:28)
[2022-04-21] MEDS: FOLIC ACID/VITAMIN B COMP W-C TABLET PO SCH (08:14)
[2022-04-21] MEDS: DOCUSATE SODIUM 100MG CAPSULE PO SCH (08:14)
[2022-04-21] MEDS: SEVELAMER CARBONATE 800 MG TABLET PO SCH ×3 (08:14→17:13)
[2022-04-21] MEDS: AMLODIPINE 10MG TABLET PO SCH (08:15)
[2022-04-21 08:27] LABS: HEMATOCRIT. 32.7 % (42.0-52.0); HEMOGLOBIN. 10.3 g/dL (14.0-18.0); MEAN CORPUSCULAR HEMOGLOBIN 28.9 pg (28.0-32.0); MEAN PLATELET VOLUME 7.9 fl (7.4-10.4); PLATELET 219 x1000/uL (130-400); RED BLOOD CELL COUNT 3.55 mill/uL (4.7-6.1); RED CELL DISTRIBUTION WIDTH 23.9 % (11.6-14.6)
[2022-04-21] MEDS: LACTULOSE 20G/30ML UDC PO PRN (09:06)
[2022-04-21] MEDS: ENOXAPARIN 40MG/0.4ML SYR SUBCUT SCH (12:20)
[2022-04-21] MEDS ORDERED: VANCOMYCIN 500MG PREMIX 100 ML IV NR (21:00)
[2022-04-21 22:50] LABS: PLATELET ESTIMATE NORMAL
[2022-04-22] VITALS (9 sets, daily range): BP systolic 90–131; BP diastolic 54–78
[2022-04-22] MEDS: IPRATROPIUM/ALBUTEROL 0.5-3(2.5)MG/3ML NEB HHN SCH ×4 (01:32→20:42)
[2022-04-22 06:35] LABS: HEMATOCRIT. 30.4 % (42.0-52.0); HEMOGLOBIN. 9.7 g/dL (14.0-18.0); MEAN CORPUSCULAR HEMOGLOBIN 28.8 pg (28.0-32.0); MEAN CORPUSCULAR VOLUME 89.7 fL (80.0-94.0); PLATELET 209 x1000/uL (130-400); RED BLOOD CELL COUNT 3.39 mill/uL (4.7-6.1); RED CELL DISTRIBUTION WIDTH 23.4 % (11.6-14.6)
[2022-04-22] MEDS: SEVELAMER CARBONATE 800 MG TABLET PO SCH ×3 (09:09→18:25)
[2022-04-22] MEDS: AMLODIPINE 10MG TABLET PO SCH (09:10)
[2022-04-22] MEDS: FOLIC ACID/VITAMIN B COMP W-C TABLET PO SCH (09:10)
[2022-04-22] MEDS: DOCUSATE SODIUM 100MG CAPSULE PO SCH (09:10)
[2022-04-22] MEDS: ENOXAPARIN 40MG/0.4ML SYR SUBCUT SCH ×2 (13:00→15:00)
[2022-04-22 20:56] LABS: PLATELET ESTIMATE NORMAL
[2022-04-23] VITALS: BP 108/86
[2022-04-23 04:00] VITALS: BP 95/50
[2022-04-23 07:51] LABS: HEMATOCRIT. 30.5 % (42.0-52.0); HEMOGLOBIN. 9.8 g/dL (14.0-18.0); MEAN CORPUSCULAR HEMOGLOBIN 28.8 pg (28.0-32.0); MEAN CORPUSCULAR VOLUME 90.2 fL (80.0-94.0); MEAN PLATELET VOLUME 8.3 fl (7.4-10.4); PLATELET 206 x1000/uL (130-400); RED BLOOD CELL COUNT 3.38 mill/uL (4.7-6.1); RED CELL DISTRIBUTION WIDTH 22.3 % (11.6-14.6)
[2022-04-23 08:00] VITALS: BP 104/68
[2022-04-23] MEDS: IPRATROPIUM/ALBUTEROL 0.5-3(2.5)MG/3ML NEB HHN SCH ×4 (08:30→21:37)
[2022-04-23] MEDS ORDERED: LIDOCAINE HCL/EPINEPHRINE 1%-EPI 1:100,000 20 ML VIAL ONE (08:41)
[2022-04-23] MEDS ORDERED: LIDOCAINE HCL 1% 10 MG/ML 10ML VIAL ONE (08:41)
[2022-04-23] MEDS ORDERED: FENTANYL CITRATE/PF 50MCG/ML 2ML VIAL ONE (08:41)
[2022-04-23] MEDS: DOCUSATE SODIUM 100MG CAPSULE PO SCH (09:00)
[2022-04-23] MEDS: AMLODIPINE 10MG TABLET PO SCH ×2 (09:00→10:32)
[2022-04-23] MEDS: SEVELAMER CARBONATE 800 MG TABLET PO SCH ×3 (10:31→17:44)
[2022-04-23] MEDS: FOLIC ACID/VITAMIN B COMP W-C TABLET PO SCH (10:31)
[2022-04-23 12:00] VITALS: BP 100/60
[2022-04-23] MEDS: ENOXAPARIN 40MG/0.4ML SYR SUBCUT SCH ×2 (13:00→13:28)
[2022-04-23 14:06] LABS: PLATELET ESTIMATE NORMAL
[2022-04-23 16:00] VITALS: BP 123/94
[2022-04-23 20:00] VITALS: BP 137/91
[2022-04-23] MEDS ORDERED: VANCOMYCIN 1G PREMIX 200 ML IV NR (21:00)
[2022-04-24] VITALS: BP 114/78
[2022-04-24] MEDS: IPRATROPIUM/ALBUTEROL 0.5-3(2.5)MG/3ML NEB HHN SCH ×4 (01:39→21:26)
[2022-04-24 04:00] VITALS: BP 116/76
[2022-04-24] MEDS: SEVELAMER CARBONATE 800 MG TABLET PO SCH ×3 (07:50→17:47)
[2022-04-24 08:00] VITALS: BP 121/71
[2022-04-24] MEDS: AMLODIPINE 10MG TABLET PO SCH (09:00)
[2022-04-24] MEDS: DOCUSATE SODIUM 100MG CAPSULE PO SCH (09:00)
[2022-04-24] MEDS: FOLIC ACID/VITAMIN B COMP W-C TABLET PO SCH (09:00)
[2022-04-24 12:00] VITALS: BP 120/70
[2022-04-24] MEDS: ENOXAPARIN 40MG/0.4ML SYR SUBCUT SCH (13:00)
[2022-04-24] MEDS ORDERED: VANCOMYCIN 1.25GM PMX (XELLIA) 250 ML IV SCH (14:00)
[2022-04-24 16:00] VITALS: BP 110/68
[2022-04-24 20:00] VITALS: BP 117/82
[2022-04-25] VITALS: BP 111/87
[2022-04-25] MEDS: IPRATROPIUM/ALBUTEROL 0.5-3(2.5)MG/3ML NEB HHN SCH ×4 (01:21→20:23)
[2022-04-25 04:00] VITALS: BP 111/72
[2022-04-25 06:13] LABS: BASOPHILS % 0.6 % (0.0-2.0); EOSINOPHILS % 1.1 % (0.0-5.0); HEMATOCRIT. 30.4 % (42.0-52.0); HEMOGLOBIN. 9.8 g/dL (14.0-18.0); LYMPHOCYTES % 7.6 % (20.0-50.0); MEAN CORPUSCULAR HEMOGLOBIN 28.7 pg (28.0-32.0); MEAN CORPUSCULAR VOLUME 88.7 fL (80.0-94.0); MEAN PLATELET VOLUME 8.5 fl (7.4-10.4); MONOCYTES % 9.3 % (2.0-8.0); NEUTROPHILS % 81.4 % (40.0-76.0); PLATELET 236 x1000/uL (130-400); RED BLOOD CELL COUNT 3.42 mill/uL (4.7-6.1); RED CELL DISTRIBUTION WIDTH 21.9 % (11.6-14.6)
[2022-04-25 08:00] VITALS: BP 109/69
[2022-04-25] MEDS: SEVELAMER CARBONATE 800 MG TABLET PO SCH ×3 (09:11→16:59)
[2022-04-25] MEDS: AMLODIPINE 10MG TABLET PO SCH (09:11)
[2022-04-25] MEDS: DOCUSATE SODIUM 100MG CAPSULE PO SCH (09:11)
[2022-04-25] MEDS: FOLIC ACID/VITAMIN B COMP W-C TABLET PO SCH (09:11)
[2022-04-25 12:00] VITALS: BP 110/55
[2022-04-25] MEDS: ENOXAPARIN 40MG/0.4ML SYR SUBCUT SCH (13:38)
[2022-04-25 16:00] VITALS: BP 111/73
[2022-04-25 20:00] VITALS: BP 127/82
[2022-04-25] MEDS: ACETAMINOPHEN 650MG/20.3ML UDC PO PRN (22:51)
[2022-04-26] VITALS: BP 103/65
[2022-04-26] MEDS: IPRATROPIUM/ALBUTEROL 0.5-3(2.5)MG/3ML NEB HHN SCH ×2 (02:11→09:11)
[2022-04-26 04:00] VITALS: BP 95/56
[2022-04-26 06:25] LABS: HEMATOCRIT. 31.2 % (42.0-52.0); MEAN CORPUSCULAR HEMOGLOBIN 28.7 pg (28.0-32.0); MEAN CORPUSCULAR VOLUME 89.3 fL (80.0-94.0); MEAN PLATELET VOLUME 8.8 fl (7.4-10.4); PLATELET 238 x1000/uL (130-400); RED CELL DISTRIBUTION WIDTH 22.4 % (11.6-14.6)
[2022-04-26 08:07] VITALS: BP 108/72
[2022-04-26] MEDS: AMLODIPINE 10MG TABLET PO SCH (09:00)
[2022-04-26] MEDS: FOLIC ACID/VITAMIN B COMP W-C TABLET PO SCH (09:03)
[2022-04-26] MEDS: SEVELAMER CARBONATE 800 MG TABLET PO SCH ×3 (09:03→19:36)
[2022-04-26] MEDS: DOCUSATE SODIUM 100MG CAPSULE PO SCH (09:03)
[2022-04-26 12:00] VITALS: BP 103/71
[2022-04-26] MEDS: ACETAMINOPHEN 650MG/20.3ML UDC PO PRN ×2 (12:09→21:50)
[2022-04-26] MEDS: TRAMADOL 50MG TABLET PO PRN ×2 (12:11→21:50)
[2022-04-26] MEDS: ENOXAPARIN 40MG/0.4ML SYR SUBCUT SCH ×2 (12:14→12:16)
[2022-04-26] MEDS ORDERED: VANCOMYCIN 750MG PREMIX 150 ML IV NR (15:30)
[2022-04-26 16:00] VITALS: BP 104/64
[2022-04-26 20:00] VITALS: BP 125/97
[2022-04-26 21:51] LABS: PLATELET ESTIMATE NORMAL
[2022-04-26] MEDS ORDERED: NALOXONE HCL 0.4MG/ML VIAL IV PRN (22:30)
[2022-04-27] VITALS: BP 126/97
[2022-04-27] MEDS: IPRATROPIUM/ALBUTEROL 0.5-3(2.5)MG/3ML NEB HHN SCH ×4 (01:31→20:06)
[2022-04-27 04:00] VITALS: BP 111/65
[2022-04-27 07:25] LABS: HEMATOCRIT. 29.4 % (42.0-52.0); HEMOGLOBIN. 9.4 g/dL (14.0-18.0); MEAN CORPUSCULAR HEMOGLOBIN 28.4 pg (28.0-32.0); MEAN CORPUSCULAR VOLUME 89.1 fL (80.0-94.0); MEAN PLATELET VOLUME 8.8 fl (7.4-10.4); PLATELET 270 x1000/uL (130-400); RED BLOOD CELL COUNT 3.31 mill/uL (4.7-6.1); RED CELL DISTRIBUTION WIDTH 22.6 % (11.6-14.6)
[2022-04-27 08:00] VITALS: BP 120/81
[2022-04-27] MEDS: AMLODIPINE 10MG TABLET PO SCH (09:00)
[2022-04-27] MEDS: SEVELAMER CARBONATE 800 MG TABLET PO SCH ×3 (10:19→19:30)
[2022-04-27] MEDS: FOLIC ACID/VITAMIN B COMP W-C TABLET PO SCH (10:19)
[2022-04-27] MEDS: DOCUSATE SODIUM 100MG CAPSULE PO SCH (10:19)
[2022-04-27 12:00] VITALS: BP 140/67
[2022-04-27] MEDS: ENOXAPARIN 40MG/0.4ML SYR SUBCUT SCH (13:00)
[2022-04-27 16:00] VITALS: BP 99/67
[2022-04-27 20:00] VITALS: BP 105/74
[2022-04-27] MEDS: ACETAMINOPHEN 650MG/20.3ML UDC PO PRN (20:45)
[2022-04-27] MEDS: TRAMADOL 50MG TABLET PO PRN (20:45)
[2022-04-27] MEDS: ZOLPIDEM TARTRATE 5MG TABLET PO PRN (22:01)
[2022-04-28] VITALS (12 sets, daily range): BP systolic 97–132; BP diastolic 54–83
[2022-04-28] MEDS: IPRATROPIUM/ALBUTEROL 0.5-3(2.5)MG/3ML NEB HHN SCH ×4 (01:52→21:23)
[2022-04-28 06:49] LABS: HEMATOCRIT. 28.1 % (42.0-52.0); MEAN CORPUSCULAR HEMOGLOBIN 28.7 pg (28.0-32.0); MEAN CORPUSCULAR VOLUME 89.5 fL (80.0-94.0); MEAN PLATELET VOLUME 8.8 fl (7.4-10.4); PLATELET 285 x1000/uL (130-400); RED BLOOD CELL COUNT 3.14 mill/uL (4.7-6.1); RED CELL DISTRIBUTION WIDTH 22.1 % (11.6-14.6)
[2022-04-28 08:22] LABS: PLATELET ESTIMATE NORMAL
[2022-04-28] MEDS: SEVELAMER CARBONATE 800 MG TABLET PO SCH ×3 (09:20→18:01)
[2022-04-28] MEDS: DOCUSATE SODIUM 100MG CAPSULE PO SCH (09:20)
[2022-04-28] MEDS: AMLODIPINE 10MG TABLET PO SCH (09:21)
[2022-04-28] MEDS: FOLIC ACID/VITAMIN B COMP W-C TABLET PO SCH (09:22)
[2022-04-28] MEDS ORDERED: LIDOCAINE HCL/EPINEPHRINE 1%-EPI 1:100,000 20 ML VIAL ONE (10:26)
[2022-04-28] MEDS ORDERED: LIDOCAINE HCL/PF 1% 10 MG/ML 5ML VIAL ONE (10:27)
[2022-04-28 10:55] LABS: INR 1.1; PROTHROMBIN TIME 11.3 sec (9.6-11.0)
[2022-04-28] MEDS ORDERED: LIDOCAINE HCL 1% 10 MG/ML 10ML VIAL ONE (11:43)
[2022-04-28] MEDS ORDERED: VANCOMYCIN 1G PREMIX 200 ML IV NR (12:00)
[2022-04-28] MEDS: ENOXAPARIN 40MG/0.4ML SYR SUBCUT SCH (12:45)
[2022-04-28 13:51] LABS: PLATELET ESTIMATE NORMAL
[2022-04-28] MEDS: ZOLPIDEM TARTRATE 5MG TABLET PO PRN (22:01)
[2022-04-29] VITALS (7 sets, daily range): BP systolic 100–114; BP diastolic 62–77
[2022-04-29] MEDS: IPRATROPIUM/ALBUTEROL 0.5-3(2.5)MG/3ML NEB HHN SCH ×3 (01:25→15:29)
[2022-04-29 07:15] LABS: BASOPHILS % 0.8 % (0.0-2.0); HEMATOCRIT. 23.2 % (42.0-52.0); HEMOGLOBIN. 7.5 g/dL (14.0-18.0); LYMPHOCYTES % 8.4 % (20.0-50.0); MEAN CORPUSCULAR HEMOGLOBIN 28.9 pg (28.0-32.0); MEAN CORPUSCULAR VOLUME 89.7 fL (80.0-94.0); MEAN PLATELET VOLUME 8.6 fl (7.4-10.4); MONOCYTES % 10.6 % (2.0-8.0); NEUTROPHILS % 79.2 % (40.0-76.0); PLATELET 244 x1000/uL (130-400); RED BLOOD CELL COUNT 2.58 mill/uL (4.7-6.1)
[2022-04-29] MEDS: SEVELAMER CARBONATE 800 MG TABLET PO SCH ×3 (07:50→17:16)
[2022-04-29] MEDS: AMLODIPINE 10MG TABLET PO SCH (09:00)
[2022-04-29] MEDS: DOCUSATE SODIUM 100MG CAPSULE PO SCH (09:00)
[2022-04-29] MEDS ORDERED: POTASSIUM CHLORIDE 20MEQ TABLET SR PO SCH (09:15)
[2022-04-29] MEDS: ENOXAPARIN 40MG/0.4ML SYR SUBCUT SCH (13:00)
[2022-04-29] MEDS: FOLIC ACID/VITAMIN B COMP W-C TABLET PO SCH (13:51)
[2022-04-29] MEDS ORDERED: VANCOMYCIN 1250MG in DEXTROSE 5% WATER 250ML IV NR (18:00)
[2022-04-29] MEDS ORDERED: EPOETIN ALFA-EPBX 10,000 UNIT/ML VIAL SUBCUT SCH (21:00)
[2022-04-29] MEDS: HYDROCODONE/ACETAMINOPHEN 5/325MG TABLET PO PRN (21:27)
[2022-04-29] MEDS: ZOLPIDEM TARTRATE 5MG TABLET PO PRN (22:50)
[2022-04-30] MEDS: IPRATROPIUM/ALBUTEROL 0.5-3(2.5)MG/3ML NEB HHN SCH ×2 (00:22→09:05)
[2022-04-30 04:00] VITALS: BP 92/59
[2022-04-30 07:55] LABS: MEAN CORPUSCULAR HEMOGLOBIN 28.6 pg (28.0-32.0); PLATELET 289 x1000/uL (130-400); RED BLOOD CELL COUNT 3.15 mill/uL (4.7-6.1); RED CELL DISTRIBUTION WIDTH 21.8 % (11.6-14.6)
[2022-04-30 08:00] VITALS: BP 116/74
[2022-04-30] MEDS: SEVELAMER CARBONATE 800 MG TABLET PO SCH ×2 (08:59→12:40)
[2022-04-30] MEDS: AMLODIPINE 10MG TABLET PO SCH (08:59)
[2022-04-30] MEDS: FOLIC ACID/VITAMIN B COMP W-C TABLET PO SCH (08:59)
[2022-04-30] MEDS: DOCUSATE SODIUM 100MG CAPSULE PO SCH (09:00)
[2022-04-30] MEDS: HYDROCODONE/ACETAMINOPHEN 5/325MG TABLET PO PRN (09:00)
[2022-04-30 12:00] VITALS: BP 99/64
[2022-04-30] MEDS: ENOXAPARIN 40MG/0.4ML SYR SUBCUT SCH (12:40)
[2022-04-30 13:46] VITALS: BP 99/64
[2022-04-30 16:00] VITALS: BP 124/77
== END 2022-04-30 17:36 | disposition home or self-care (01) | DRG 314 ==
LOC: ER 16:26 → 5EST 18:01 → ENRESERV 20:25 → 6WST 04-22 13:31
PROVIDERS: ADMIT Hospitalist; ATTEND Hospitalist
PROC: 5A1D70Z Performance of Urinary Filtration, Intermittent, Less than 6 Hours Per Day (ICD-10-PCS; principal; 2022-04-16)
PROC: 5A09357 Assistance with Respiratory Ventilation, Less than 24 Consecutive Hours, Continuous Positive Airway Pressure (ICD-10-PCS; 2022-04-16)
PROC: 5A1D70Z Performance of Urinary Filtration, Intermittent, Less than 6 Hours Per Day (ICD-10-PCS; 2022-04-17)
PROC: 5A09357 Assistance with Respiratory Ventilation, Less than 24 Consecutive Hours, Continuous Positive Airway Pressure (ICD-10-PCS; 2022-04-17)
PROC: 5A09357 Assistance with Respiratory Ventilation, Less than 24 Consecutive Hours, Continuous Positive Airway Pressure (ICD-10-PCS; 2022-04-18)
PROC: 5A1D70Z Performance of Urinary Filtration, Intermittent, Less than 6 Hours Per Day (ICD-10-PCS; 2022-04-19)
PROC: 5A09357 Assistance with Respiratory Ventilation, Less than 24 Consecutive Hours, Continuous Positive Airway Pressure (ICD-10-PCS; 2022-04-19)
PROC: 5A09357 Assistance with Respiratory Ventilation, Less than 24 Consecutive Hours, Continuous Positive Airway Pressure (ICD-10-PCS; 2022-04-20)
PROC: 05PYX3Z Removal of Infusion Device from Upper Vein, External Approach (ICD-10-PCS; 2022-04-20)
PROC: 5A09357 Assistance with Respiratory Ventilation, Less than 24 Consecutive Hours, Continuous Positive Airway Pressure (ICD-10-PCS; 2022-04-21)
PROC: 5A09357 Assistance with Respiratory Ventilation, Less than 24 Consecutive Hours, Continuous Positive Airway Pressure (ICD-10-PCS; 2022-04-22)
PROC: 5A1D70Z Performance of Urinary Filtration, Intermittent, Less than 6 Hours Per Day (ICD-10-PCS; 2022-04-23)
PROC: 5A09357 Assistance with Respiratory Ventilation, Less than 24 Consecutive Hours, Continuous Positive Airway Pressure (ICD-10-PCS; 2022-04-23)
PROC: 05HM33Z Insertion of Infusion Device into Right Internal Jugular Vein, Percutaneous Approach (ICD-10-PCS; 2022-04-23)
PROC: B543ZZA Ultrasonography of Right Jugular Veins, Guidance (ICD-10-PCS; 2022-04-23)
PROC: 5A09357 Assistance with Respiratory Ventilation, Less than 24 Consecutive Hours, Continuous Positive Airway Pressure (ICD-10-PCS; 2022-04-24)
PROC: 5A1D70Z Performance of Urinary Filtration, Intermittent, Less than 6 Hours Per Day (ICD-10-PCS; 2022-04-25)
PROC: 5A09357 Assistance with Respiratory Ventilation, Less than 24 Consecutive Hours, Continuous Positive Airway Pressure (ICD-10-PCS; 2022-04-25)
PROC: 5A09357 Assistance with Respiratory Ventilation, Less than 24 Consecutive Hours, Continuous Positive Airway Pressure (ICD-10-PCS; 2022-04-26)
PROC: 5A1D70Z Performance of Urinary Filtration, Intermittent, Less than 6 Hours Per Day (ICD-10-PCS; 2022-04-27)
PROC: 5A09357 Assistance with Respiratory Ventilation, Less than 24 Consecutive Hours, Continuous Positive Airway Pressure (ICD-10-PCS; 2022-04-27)
PROC: 5A1D70Z Performance of Urinary Filtration, Intermittent, Less than 6 Hours Per Day (ICD-10-PCS; 2022-04-28)
PROC: 5A09357 Assistance with Respiratory Ventilation, Less than 24 Consecutive Hours, Continuous Positive Airway Pressure (ICD-10-PCS; 2022-04-28)
PROC: 02HV33Z Insertion of Infusion Device into Superior Vena Cava, Percutaneous Approach (ICD-10-PCS; 2022-04-28)
PROC: B5181ZA Fluoroscopy of Superior Vena Cava using Low Osmolar Contrast, Guidance (ICD-10-PCS; 2022-04-28)
PROC: 5A1D70Z Performance of Urinary Filtration, Intermittent, Less than 6 Hours Per Day (ICD-10-PCS; 2022-04-29)
PROC: 5A09357 Assistance with Respiratory Ventilation, Less than 24 Consecutive Hours, Continuous Positive Airway Pressure (ICD-10-PCS; 2022-04-29)
PROC: 5A1D70Z Performance of Urinary Filtration, Intermittent, Less than 6 Hours Per Day (ICD-10-PCS; 2022-04-30)
PROC: 5A09357 Assistance with Respiratory Ventilation, Less than 24 Consecutive Hours, Continuous Positive Airway Pressure (ICD-10-PCS; 2022-04-30)
DX: T80.211A Bloodstream infection due to central venous catheter, initial encounter (principal); A41.81 Sepsis due to Enterococcus; I50.33 Acute on chronic diastolic (congestive) heart failure; N18.6 End stage renal disease; J96.01 Acute respiratory failure with hypoxia; I13.2 Hypertensive heart and chronic kidney disease with heart failure and with stage 5 chronic kidney disease, or end stage renal disease; E87.1 Hypo-osmolality and hyponatremia; E44.1 Mild protein-calorie malnutrition; Z68.41 Body mass index [BMI] 40.0-44.9, adult; M19.90 Unspecified osteoarthritis, unspecified site; I27.29 Other secondary pulmonary hypertension; E66.01 Morbid (severe) obesity due to excess calories; E78.5 Hyperlipidemia, unspecified; E87.6 Hypokalemia; D63.1 Anemia in chronic kidney disease; G47.33 Obstructive sleep apnea (adult) (pediatric); J44.9 Chronic obstructive pulmonary disease, unspecified; F14.90 Cocaine use, unspecified, uncomplicated; B19.20 Unspecified viral hepatitis C without hepatic coma; Z20.822 Contact with and (suspected) exposure to COVID-19; Y84.8 Other medical procedures as the cause of abnormal reaction of the patient, or of later complication, without mention of misadventure at the time of the procedure; Z91.19 Patient's noncompliance with other medical treatment and regimen; Z99.2 Dependence on renal dialysis; Z99.81 Dependence on supplemental oxygen; Z71.51 Drug abuse counseling and surveillance of drug abuser
CPT/HCPCS: 36415; 36556; 36558; 36573; 36589; 36600; 71045; 76937; 77001; 80048; 80053; 80202; 82375; 82805; 82962; 83880; 84145; 84484; 85025; 85027; 86705; 86709; 86803; 86850; 86900; 87070; 87077; 87186; 87340; 87426; 93306; 94003; 94640; 94660; 97162; 99291; C1725; C1750; C1752; C1769; C9803; J0885; J1650; J1940; J2405; J3010; J3370; J3490; J7060; U0003; U0005

== ENCOUNTER 2022-05-12 10:28 | Emergency (ER) | payer OTHER ==
[~2022-05-12] VITALS: Ht 177.8 cm; Wt 127.0 kg
[2022-05-12 11:44] LABS: HEMATOCRIT. 30.2 % (42.0-52.0); HEMOGLOBIN. 10.1 g/dL (14.0-18.0); MEAN CORPUSCULAR HEMOGLOBIN 29.1 pg (28.0-32.0); MEAN CORPUSCULAR VOLUME 87.3 fL (80.0-94.0); MEAN PLATELET VOLUME 7.1 fl (7.4-10.4); PLATELET 288 x1000/uL (130-400); RED BLOOD CELL COUNT 3.46 mill/uL (4.7-6.1)
[2022-05-12 11:53] LABS: INR 1.1; PROTHROMBIN TIME 11.6 sec (9.6-11.0)
[2022-05-12 11:58] LABS: CHLORIDE 93 mEq/L (98-107)
[2022-05-12 12:07] LABS: PLATELET ESTIMATE NORMAL
[2022-05-12 13:15] LABS: BG BASE EXCESS -2.3 mmol/L (-2.0-2.0); BG CARBOXYHEMOGLOBIN 1.7 % (0.5-1.5); BG DEOXYHEMOGLOBIN 15.4 % (0.0-5.0); BG FRACTION INSPIRED OXYGEN 21; BG HCO3 ACT 23.2 mmol/L (22.0-26.0); BG METHEMOGLOBIN 0.3 % (0.0-1.5); BG OXYGEN SATURATION 84.3 % (92.0-98.5); BG OXYHEMOGLOBIN 82.6 % (94.0-97.0); BG PCO2 42.7 mmHg (35.0-45.0); BG PH 7.352 (7.350-7.450); BG PO2 49.1 mmHg (75.0-100.0); BG SAMPLE SITE LEFT RADIAL; BG TOTAL HEMOGLOBIN 10.5 g/dL (12.0-18.0); BG VENT MODE ROOM AIR
[2022-05-12 17:31] VITALS: BP 111/67
== END 2022-05-12 17:39 | disposition short-term general hospital (02) ==
LOC: ER 10:49 → CANBEDREQ 21:51
DX: T82.41XA Breakdown (mechanical) of vascular dialysis catheter, initial encounter (principal); I11.0 Hypertensive heart disease with heart failure; I50.9 Heart failure, unspecified; I12.9 Hypertensive chronic kidney disease with stage 1 through stage 4 chronic kidney disease, or unspecified chronic kidney disease; N18.9 Chronic kidney disease, unspecified; D64.9 Anemia, unspecified; Z98.890 Other specified postprocedural states
CPT/HCPCS: 36415; 36600; 71045; 80053; 82375; 82805; 85025; 93005; 99285